=== PATIENT | female | born 1970 | race Caucasian/White ===

== ENCOUNTER 2019-12-19 06:00 | Outpatient (CLI) | payer MEDICAID, SELFPAY | END 2019-12-19 06:01 | disposition home or self-care (01) | PROVIDERS: PCP Nurse Practitioner Family; Visit Provider Nurse Practitioner Family | DX: C83.35 Diffuse large B-cell lymphoma, lymph nodes of inguinal region and lower limb (principal) | CPT/HCPCS: 80053; 80061; 83036; 83615; 84443; 85025; 85651; 86803 ==

== ENCOUNTER → 2019-12-29 10:53 | Outpatient (BNVA) | payer MEDICAID, SELFPAY | PROVIDERS: Family Provider Nurse Practitioner Family; PCP Nurse Practitioner Family; Visit Provider Internal Medicine Rheumatology | DX: Z11.59 Encounter for screening for other viral diseases (principal); Z79.899 Other long term (current) drug therapy; Z72.89 Other problems related to lifestyle | CPT/HCPCS: 36415; 87340 ==

== ENCOUNTER → 2020-02-14 13:09 | Outpatient (BNVA) | payer MEDICAID, SELFPAY | PROVIDERS: Family Provider Nurse Practitioner Family; PCP Nurse Practitioner Family; Visit Provider Internal Medicine | DX: M06.9 Rheumatoid arthritis, unspecified (principal); Z79.899 Other long term (current) drug therapy; L40.9 Psoriasis, unspecified; M35.3 Polymyalgia rheumatica; Z79.52 Long term (current) use of systemic steroids; F17.210 Nicotine dependence, cigarettes, uncomplicated | CPT/HCPCS: 36415; 80053; 85025; 85651; 86140; 99214 ==

== ENCOUNTER 2020-02-20 11:16 | Outpatient (CLI) | payer MEDICAID, SELFPAY ==
--- NOTE | 2020-02-20 11:25 | MM_ITS ---
WS: [id number] BILATERAL SCREENING DIGITAL MAMMOGRAM WITH CAD HISTORY: SCREENING COMPARISON: 01/21/2018, 12/07/2017 and 02/11/2018 Bilateral CC and MLO views submitted. Computer aided detection analyzed. Breast composition: There are scattered areas of fibroglandular density. No suspicious masses, microc alcifications or architectural distortion. Biopsy clip in the anterior RIGHT breast. No suspicious ma sses or calcifications. MM/[place] [id number] IMPRESSION: BI-RADS: 2-Benign FOLLOW UP: 1 Year Follow-up
== END 2020-02-20 11:17 | disposition home or self-care (01) ==
LOC: RADSHAW 11:22
PROVIDERS: PCP Nurse Practitioner Family; Visit Provider Nurse Practitioner Family
DX: Z12.31 Encounter for screening mammogram for malignant neoplasm of breast (principal)
CPT/HCPCS: 77067

== ENCOUNTER 2020-02-20 12:27 | Outpatient (CLI) | payer MEDICAID, SELFPAY ==
--- NOTE | 2020-02-20 12:35 | XR_ITS ---
WS: [id number] TECHNIQUE: 2 views of the right hand CLINICAL INFORMATION: increase COMPARISON: None. FINDINGS: Normal metacarpals. Normal MCP joint. Metacarpal heads are normal in appearance. Normal PIP and DIP j oints. No evidence of acute fracture or dislocation. Radiocarpal joint: Normal. Carpal bones: Normal. XR/XR hand RT 2V [id number] IMPRESSION: Normal right hand.
--- NOTE | 2020-02-20 12:35 | XR_ITS ---
WS: [id number] TECHNIQUE: 2 views of the left hand CLINICAL INFORMATION: increase pain COMPARISON: None. FINDINGS: Normal metacarpals. Normal MCP joint. Metacarpal heads are normal in appearance. Normal PIP and DIP j oints. No evidence of acute fracture or dislocation. Radiocarpal joint: Normal. Carpal bones: Normal. XR/XR hand LT 2V [id number] IMPRESSION: Normal left hand.
== END 2020-02-20 12:28 | disposition home or self-care (01) ==
PROVIDERS: Family Provider Nurse Practitioner Family; PCP Nurse Practitioner Family; Visit Provider Internal Medicine
DX: M79.642 Pain in left hand (principal); M79.641 Pain in right hand
CPT/HCPCS: 73120

== ENCOUNTER 2020-03-26 15:18 | Outpatient (CLI) | payer MEDICAID, SELFPAY ==
[2020-03-26 17:07] LABS: Basophils # 0.1 10^3/uL (0.0-0.1); Eosinophils # 0.2 10^3/uL (0.0-0.8); Eosinophils % 3.5 %; Hematocrit 43.2 % (37.0-47.0); Lymphocytes # 1.3 10^3/uL (0.8-4.8); Lymphocytes % 26.6 %; Mean Corpuscular HGB Conc 32.4 g/dL (30.0-36.0); Mean Corpuscular Hemoglobin 30.3 pg (28.0-34.0); Mean Corpuscular Volume 93.5 fL (81-99); Mean Platelet Volume 11.7 fL (7.4-10.4); Monocytes # 0.7 10^3/uL (0.2-0.9); Monocytes % 13.9 %; Neutrophils # 2.63 10^3/uL (1.8-7.7); Neutrophils % 54.8 %; Nucleated Red Blood Cells % 0 %; Platelet Count 335 10^3/cmm (130-400); Red Blood Count 4.62 10^6/uL (4.1-5.3); White Blood Count 4.8 10^3/uL (4.0-10.0)
[2020-03-26 17:26] LABS: Blood Urea Nitrogen 11 mg/dL (6-20); Calcium 9.1 mg/dL (8.5-10.5); Carbon Dioxide 26 mmol/L (22-29); Glomerular Filtration Rate 88.2 mL/min (90-130); Glucose 109 mg/dL (65-115)
[2020-03-26 19:00] LABS: Estmated Average Glucose 137; Hemoglobin A1C 6.4 % (4.0-6.0)
[2020-03-26 19:12] LABS: Anion Gap 17.9 (5-19); Chloride 103 mmol/L (98-107); Osmolality Calculated 288 mOsm/kg (285-295); Potassium 3.9 mmol/L (3.5-5.1); Sodium 141 mmol/L (136-145)
== END 2020-03-26 15:19 | disposition home or self-care (01) ==
LOC: LAB 15:20
PROVIDERS: PCP Nurse Practitioner Family; Visit Provider Nurse Practitioner Family
DX: Z79.899 Other long term (current) drug therapy (principal)
CPT/HCPCS: 80048; 83036; 85025

== ENCOUNTER → 2020-05-01 11:15 | Outpatient (BNVA) | payer MEDICAID, SELFPAY | PROVIDERS: PCP Nurse Practitioner Family; Visit Provider Internal Medicine | DX: M06.9 Rheumatoid arthritis, unspecified (principal); L40.9 Psoriasis, unspecified; C85.90 Non-Hodgkin lymphoma, unspecified, unspecified site; F17.210 Nicotine dependence, cigarettes, uncomplicated | CPT/HCPCS: 36415; 80053; 85025; 85651; 86140; 99213 ==

== ENCOUNTER → 2020-05-08 11:49 | Outpatient (BNVA) | payer MEDICAID, SELFPAY | PROVIDERS: PCP Nurse Practitioner Family; Visit Provider Nurse Practitioner Family | DX: Z11.59 Encounter for screening for other viral diseases (principal) | CPT/HCPCS: 87635 ==

== ENCOUNTER 2020-05-10 11:07 | Outpatient (CLI) | payer MEDICAID, SELFPAY ==
--- NOTE | 2020-05-10 11:35 | XR_ITS ---
WS: [id number] Chest 2 views, 05/10/2020 Clinical Data: CHRONIC COUGH Comparison: PA and lateral chest, 12/07/2017 Findings: No nodules, masses or effusions are seen. The heart is normal. The pulmonary vascularity is not increased. No pneumonia or pneumothorax is seen. There is an infusion catheter entering the left clavian vein and ending in the superior vena cava. The patient has had a lower cervical and upper th oracic fusion with bilateral pedicle screws and connecting rods. XR/XR chest 2V* [id number] Impression: Negative chest.
--- NOTE | 2020-05-10 11:38 | PFTS_ITS ---
Date of Study:05/10/20 Date of Dictation: 05/11/2020 MECHANICS: Forced vital capacity (FVC) is . Normal Forced expiratory volume in one second (FEV1) is moderate- severely reduced FEV1/FVC is reduced No postbronchodilator study to comment on bronchodilator response FLOW VOLUME LOOP: Scooping of expiratory limb suggestive of lower airway obstruction LUNG VOLUMES: Not measured DIFFUSING CAPACITY FOR CARBON MONOXIDE: Not measured . INTERPRETATION: Spirometry suggestive of moderately severe obstructive ventilatory defect. Correlate clinically MTDD
== END 2020-05-10 11:08 | disposition home or self-care (01) ==
LOC: RT 11:08
PROVIDERS: PCP Nurse Practitioner Family; Visit Provider Nurse Practitioner Family
DX: R05 Cough (principal)
CPT/HCPCS: 71046; 94010; 94060; J7611

== ENCOUNTER → 2020-08-01 11:06 | Outpatient (BNVA) | payer MEDICARE, MEDICAID, SELFPAY | PROVIDERS: PCP Nurse Practitioner Family; Visit Provider Internal Medicine | DX: M06.9 Rheumatoid arthritis, unspecified (principal); L40.9 Psoriasis, unspecified; F17.210 Nicotine dependence, cigarettes, uncomplicated | CPT/HCPCS: 99213 ==

== ENCOUNTER → 2020-12-20 12:57 | Outpatient (BNVA) | payer BC, MEDICAID, SELFPAY | PROVIDERS: PCP Nurse Practitioner Family; Visit Provider Internal Medicine | DX: M06.9 Rheumatoid arthritis, unspecified (principal); Z79.899 Other long term (current) drug therapy; Z79.52 Long term (current) use of systemic steroids; F17.210 Nicotine dependence, cigarettes, uncomplicated | CPT/HCPCS: 99213; 99214 ==

== ENCOUNTER 2021-03-06 13:48 | Outpatient (CLI) | payer MEDICARE, MEDICAID, SELFPAY ==
[2021-03-06 14:43] LABS: Basophils % 0.8 %; Eosinophils # 0.2 10^3/uL (0.0-0.8); Eosinophils % 3.2 %; Hematocrit 44.6 % (37.0-47.0); Lymphocytes # 1.8 10^3/uL (0.8-4.8); Lymphocytes % 34.2 %; Mean Corpuscular HGB Conc 33.6 g/dL (30.0-36.0); Mean Corpuscular Hemoglobin 31.8 pg (28.0-34.0); Mean Corpuscular Volume 94.5 fL (81-99); Mean Platelet Volume 11.3 fL (7.4-10.4); Monocytes # 0.6 10^3/uL (0.2-0.9); Monocytes % 10.5 %; Neutrophils # 2.68 10^3/uL (1.8-7.7); Neutrophils % 51.1 %; Nucleated Red Blood Cells % 0 %; Platelet Count 257 10^3/cmm (130-400); Red Blood Count 4.72 10^6/uL (4.1-5.3); Red Cell Distribution Width 13.2 % (12.1-15.1); White Blood Count 5.2 10^3/uL (4.0-10.0)
[2021-03-06 15:24] LABS: Erythrocyte Sedimentation Rate 16 mm/hr (0-15)
[2021-03-06 15:41] LABS: Alanine Aminotransferase 18 U/L (0-33); Alkaline Phosphatase 61 IU/L (35-105); Aspartate Amino Transferase 20 U/L (0-32); Blood Urea Nitrogen 9 mg/dL (6-20); C Reactive Protein 3.5 mg/L (0.0-4.9); Calcium 9.3 mg/dL (8.5-10.5); Carbon Dioxide 28 mmol/L (22-29); Chloride 104 mmol/L (98-107); Globulin 2.4 g/dL (1.3-4.6); Glomerular Filtration Rate 87.9 mL/min (90-130); Glucose 96 mg/dL (65-115); Osmolality Calculated 291 mOsm/kg (285-295); Sodium 141 mmol/L (136-145); Total Bilirubin 0.3 mg/dL (0.15-1.2); Total Protein 6.4 g/dL (6.6-8.7)
== END 2021-03-06 13:49 | disposition home or self-care (01) ==
PROVIDERS: PCP Nurse Practitioner Family; Visit Provider Internal Medicine
DX: Z79.899 Other long term (current) drug therapy (principal); C85.90 Non-Hodgkin lymphoma, unspecified, unspecified site; M06.9 Rheumatoid arthritis, unspecified; L40.9 Psoriasis, unspecified
CPT/HCPCS: 36415; 80053; 85025; 85651; 86140

== ENCOUNTER → 2021-03-07 13:08 | Outpatient (BNVA) | payer MEDICARE, MEDICAID, SELFPAY | PROVIDERS: PCP Nurse Practitioner Family; Visit Provider Internal Medicine | DX: M06.9 Rheumatoid arthritis, unspecified (principal); L40.9 Psoriasis, unspecified; C85.90 Non-Hodgkin lymphoma, unspecified, unspecified site; Z79.899 Other long term (current) drug therapy; F17.210 Nicotine dependence, cigarettes, uncomplicated | CPT/HCPCS: 99213; 99214 ==

== ENCOUNTER 2021-05-24 12:58 | Outpatient (CLI) | payer MEDICARE, MEDICAID, SELFPAY ==
--- NOTE | 2021-05-24 13:05 | CT_ITS ---
WS: [id number] CT CHEST WITH INTRAVENOUS CONTRAST HISTORY: LYMPHOMA, LYMPH NODES MULTIPLE SITES TECHNIQUE: Contiguous 5 mm axial imaging performed on the thorax. Coronal and sagittal reformats are submitted. All CT scans at [facility] use at least one of these dose optimization techniques: automated exposure control; mA and/or kV adjustment per patient size (includes targeted exams where dose is matched to clinical indication); or iterative reconstruction. CONTRAST: Omnipaque 300; 95 mL IV. DLP: 858.25 mGycm COMPARISON: 02/03/2018 Lungs and central airway: Moderate hyperinflation and emphysematous changes. There is a very small am ount of linear scarring and atelectasis at the RIGHT costophrenic angle. Pleura: Normal. No pleural effusion. Heart and pericardium: Normal size heart with no pericardial effusion. Mediastinum and roseanne: No mediastinum or hilar adenopathy. Vessels: Atherosclerosis aorta. No aneurysm. Normal size pulmonary artery. Chest wall and lower neck: No soft tissue masses. Upper abdomen: Hepatic steatosis along the falciform ligament. No bile duct dilatation or hepatic mas s. No adrenal mass. There is very mild thickening of the LEFT adrenal gland, similar to the prior nap[place] dy. No adenopathy in the upper abdomen. IVC filter is noted just to the RIGHT of L3. Postsurgical elvia nges are noted at the cervical thoracic region. No new destructive bone lesions. Osseous structures: No destructive process. CT/CT chest w con* [id number] IMPRESSION: 1. No pulmonary mass or pneumonia. 2. No adenopathy in the chest. 3. Chronic emphysema. 4. No adrenal mass.
[2021-05-24] MEDS: iohexol 300 mg/mL 100 mL Btl IV (13:27)
== END 2021-05-24 12:59 | disposition home or self-care (01) ==
PROVIDERS: PCP Nurse Practitioner Family; Visit Provider Nurse Practitioner Family
DX: C83.58 Lymphoblastic (diffuse) lymphoma, lymph nodes of multiple sites (principal); J43.9 Emphysema, unspecified
CPT/HCPCS: 71260; Q9967

== ENCOUNTER 2021-05-24 13:01 | Outpatient (CLI) | payer MEDICARE, MEDICAID, SELFPAY ==
--- NOTE | 2021-05-24 13:30 | XR_ITS ---
WS: [id number] LATERAL CERVICAL SPINE: 3 view. Lateral radiographs are performed in upright neutral, flexion and extension to the patient's toleranc e. HISTORY: Chronic neck pain. COMPARISON: 09/03/2016 Normal cervical alignment. Posterior fusion hardware extends from C7 to T3. Hardware appears intact. Normal flexion and extension the alignment of the cervical vertebral bodies remains normal. No instab ility. Mild extension instability of C5 is not identified today. XR/XR cervical spine fl/ex [id number] IMPRESSION: No cervical spine instability.
== END 2021-05-24 13:02 | disposition home or self-care (01) ==
PROVIDERS: PCP Nurse Practitioner Family; Visit Provider Internal Medicine
DX: Z79.899 Other long term (current) drug therapy (principal); M54.2 Cervicalgia
CPT/HCPCS: 72040

== ENCOUNTER 2021-06-19 12:04 | Outpatient (CLI) | payer MEDICARE, MEDICAID, SELFPAY ==
--- NOTE | 2021-06-19 12:13 | MM_ITS ---
WS: [id number] BILATERAL DIGITAL SCREENING MAMMOGRAPHY WITH CAD CLINICAL INFORMATION: SCREENING HISTORY: Screening mammogram. No current complaints. COMPARISON: February 20, 2020 TECHNIQUE: Bilateral CC and MLO views. FINDINGS: Scattered fibroglandular densities bilaterally. Vascular calcification. Stable biopsy marker right olson bareolar breast with stable 6 mm ovoid nodule. No suspicious focal mass, asymmetry, calcifications, o r architectural distortion. No evidence of malignancy. MM/[place] [id number] IMPRESSION: BI-RADS: 2-Benign FOLLOW UP: 1 Year Follow-up Recommend return to annual screening mammography.
== END 2021-06-19 12:05 | disposition home or self-care (01) ==
LOC: RADSHAW 12:10
PROVIDERS: PCP Nurse Practitioner Family; Visit Provider Nurse Practitioner Family
DX: Z12.31 Encounter for screening mammogram for malignant neoplasm of breast (principal)
CPT/HCPCS: 77067

== ENCOUNTER → 2021-06-25 09:42 | Outpatient (BNVA) | payer MEDICARE, MEDICAID, SELFPAY | PROVIDERS: PCP Nurse Practitioner Family; Visit Provider Internal Medicine | DX: M06.9 Rheumatoid arthritis, unspecified (principal); L40.9 Psoriasis, unspecified; Z79.899 Other long term (current) drug therapy; F17.210 Nicotine dependence, cigarettes, uncomplicated | CPT/HCPCS: 99214 ==

== ENCOUNTER 2021-09-04 14:36 | Outpatient (CLI) | payer MEDICARE, MEDICAID, SELFPAY ==
--- NOTE | 2021-09-04 14:47 | XR_ITS ---
WS: [id number] Right shoulder, 2 views, 09/04/2021 Clinical Data: M06.9 - Rheumatoid arthritis, unspecified Comparison: None. Findings: No fractures or dislocations are seen. The AC joint is normal. The adjacent right clavicle, right sca pula and ribs are normal. The soft tissues are unremarkable. There is a posterior fusion of the right side of the T2 and T3 vertebral bodies. XR/XR shoulder RT min 2V* [id number] Impression: Negative right shoulder.
--- NOTE | 2021-09-04 14:47 | XR_ITS ---
WS: [id number] Left shoulder, 3 views, 09/04/2021 Clinical Data: M06.9 - Rheumatoid arthritis, unspecified Comparison: None. Findings: No fractures or dislocations are seen. The AC joint is normal. There is calcification in the region o f the cortical clavicular ligament which may be from old trauma. The adjacent left clavicle, left sca pula and ribs are normal. The soft tissues are unremarkable. There is a left posterior fusion of the T1-T3 vertebral bodies. XR/XR shoulder LT min 2V* [id number] Impression: Negative left shoulder.
[2021-09-04 15:57] LABS: Basophils # 0.1 10^3/uL (0.0-0.1); Basophils % 1.1 %; Eosinophils # 0.2 10^3/uL (0.0-0.8); Eosinophils % 4.3 %; Hematocrit 43.5 % (37.0-47.0); Hemoglobin 14.6 g/dL (11.5-15.3); Lymphocytes # 1.7 10^3/uL (0.8-4.8); Lymphocytes % 36.7 %; Mean Corpuscular HGB Conc 33.6 g/dL (30.0-36.0); Mean Corpuscular Hemoglobin 31.2 pg (28.0-34.0); Mean Corpuscular Volume 92.9 fl (81-99); Mean Platelet Volume 10.7 fL (7.4-10.4); Monocytes # 0.4 10^3/uL (0.2-0.9); Monocytes % 9.1 %; Neutrophils # 2.24 10^3/uL (1.8-7.7); Neutrophils % 48.6 %; Nucleated Red Blood Cells % 0 %; Platelet Count 306 10^3/cmm (130-400); Red Blood Count 4.68 10^6/uL (4.1-5.3); Red Cell Distribution Width 13.2 % (12.1-15.1); White Blood Count 4.6 10^3/uL (4.0-10.0)
[2021-09-04 16:25] LABS: Alanine Aminotransferase 19 U/L (0-33); Albumin Level 4.1 g/dL (3.5-5.2); Alkaline Phosphatase 42 IU/L (35-105); Anion Gap 14.9 (5-19); Aspartate Amino Transferase 20 U/L (0-32); Blood Urea Nitrogen 9 mg/dL (6-20); C Reactive Protein 2.8 mg/L (0.0-4.9); Calcium 9.1 mg/dL (8.5-10.5); Carbon Dioxide 23 mmol/L (22-29); Chloride 105 mmol/L (98-107); Globulin 2.2 g/dL (1.3-4.6); Glomerular Filtration Rate 87.9 mL/min (90-130); Glucose 79 mg/dL (65-115); Osmolality Calculated 286 mOsm/kg (285-295); Potassium 3.9 mmol/L (3.5-5.1); Sodium 139 mmol/L (136-145); Total Bilirubin 0.2 mg/dL (0.15-1.2); Total Protein 6.3 g/dL (6.6-8.7)
[2021-09-04 17:01] LABS: Erythrocyte Sedimentation Rate 16 mm/hr (0-15)
== END 2021-09-04 14:37 | disposition home or self-care (01) ==
PROVIDERS: PCP Nurse Practitioner Family; Visit Provider Internal Medicine
DX: M06.9 Rheumatoid arthritis, unspecified (principal); L40.9 Psoriasis, unspecified; Z79.899 Other long term (current) drug therapy
CPT/HCPCS: 73030; 80053; 85025; 85651; 86140

== ENCOUNTER → 2021-09-18 12:26 | Outpatient (BNVA) | payer MEDICARE, MEDICAID, SELFPAY | PROVIDERS: PCP Nurse Practitioner Family; Visit Provider Internal Medicine | DX: M06.9 Rheumatoid arthritis, unspecified (principal); Z79.899 Other long term (current) drug therapy; Z99.3 Dependence on wheelchair | CPT/HCPCS: 99214 ==

== ENCOUNTER 2021-12-20 12:23 | Outpatient (CLI) | payer MEDICARE, MEDICAID, SELFPAY ==
[2021-12-20 14:03] LABS: Basophils # 0.1 10^3/uL (0.0-0.1); Basophils % 0.8 %; Eosinophils # 0.2 10^3/uL (0.0-0.8); Hematocrit 43.7 % (37.0-47.0); Hemoglobin 14.9 g/dL (11.5-15.3); Lymphocytes # 1.5 10^3/uL (0.8-4.8); Lymphocytes % 25.4 %; Mean Corpuscular HGB Conc 34.1 g/dL (30.0-36.0); Mean Corpuscular Hemoglobin 31.8 pg (28.0-34.0); Mean Corpuscular Volume 93.2 fl (81-99); Mean Platelet Volume 11.4 fL (7.4-10.4); Monocytes # 0.7 10^3/uL (0.2-0.9); Monocytes % 11.7 %; Neutrophils # 3.53 10^3/uL (1.8-7.7); Neutrophils % 58.9 %; Nucleated Red Blood Cells % 0 %; Platelet Count 276 10^3/cmm (130-400); Red Blood Count 4.69 10^6/uL (4.1-5.3); Red Cell Distribution Width 14.2 % (12.1-15.1)
[2021-12-20 14:21] LABS: Alanine Aminotransferase 22 U/L (0-33); Albumin Level 4.4 g/dL (3.5-5.2); Alkaline Phosphatase 39 IU/L (35-105); Anion Gap 14.8 (5-19); Aspartate Amino Transferase 21 U/L (0-32); Blood Urea Nitrogen 9 mg/dL (6-20); Calcium 8.7 mg/dL (8.5-10.5); Carbon Dioxide 26 mmol/L (22-29); Chloride 103 mmol/L (98-107); Globulin 1.9 g/dL (1.3-4.6); Glomerular Filtration Rate 87.9 mL/min (90-130); Glucose 90 mg/dL (65-115); Osmolality Calculated 288 mOsm/kg (285-295); Potassium 3.8 mmol/L (3.5-5.1); Sodium 140 mmol/L (136-145); Total Bilirubin 0.2 mg/dL (0.15-1.2); Total Protein 6.3 g/dL (6.6-8.7)
[2021-12-20 14:29] LABS: Erythrocyte Sedimentation Rate 8 mm/hr (0-15)
== END 2021-12-20 12:24 | disposition home or self-care (01) ==
LOC: LAB 12:26
PROVIDERS: PCP Nurse Practitioner Family; Visit Provider Internal Medicine
DX: Z79.899 Other long term (current) drug therapy (principal); M06.9 Rheumatoid arthritis, unspecified; L40.9 Psoriasis, unspecified; C85.90 Non-Hodgkin lymphoma, unspecified, unspecified site
CPT/HCPCS: 36415; 80053; 85025; 85651; 86140

== ENCOUNTER → 2021-12-23 13:40 | Outpatient (BNVA) | payer MEDICARE, MEDICAID, SELFPAY | PROVIDERS: PCP Nurse Practitioner Family; Visit Provider Internal Medicine | DX: M06.9 Rheumatoid arthritis, unspecified (principal); Z79.899 Other long term (current) drug therapy; F17.210 Nicotine dependence, cigarettes, uncomplicated | CPT/HCPCS: 99213 ==

== ENCOUNTER 2022-09-16 10:57 | Outpatient (CLI) | payer MEDICARE, MEDICAID, SELFPAY ==
[2022-09-16 11:22] LABS: Basophils # 0.1 10^3/uL (0.0-0.1); Basophils % 0.9 %; Eosinophils # 0.2 10^3/uL (0.0-0.8); Eosinophils % 4.4 %; Erythrocyte Sedimentation Rate 7 mm/hr (0-15); Hematocrit 47.2 % (37.0-47.0); Hemoglobin 15.6 g/dL (11.5-15.3); Lymphocytes # 1.5 10^3/uL (0.8-4.8); Mean Corpuscular HGB Conc 33.1 g/dL (30.0-36.0); Mean Corpuscular Hemoglobin 31.5 pg (28.0-34.0); Mean Corpuscular Volume 95.2 fl (81-99); Mean Platelet Volume 9.9 fL (7.4-10.4); Monocytes # 0.5 10^3/uL (0.2-0.9); Monocytes % 9.8 %; Neutrophils # 3.17 10^3/uL (1.8-7.7); Neutrophils % 57.7 %; Nucleated Red Blood Cells % 0 %; Platelet Count 367 10^3/cmm (130-400); Red Blood Count 4.96 10^6/uL (4.1-5.3); Red Cell Distribution Width 13.7 % (12.1-15.1); White Blood Count 5.5 10^3/uL (4.0-10.0)
[2022-09-16 11:39] LABS: Alanine Aminotransferase 30 U/L (0-33); Albumin Level 4.5 g/dL (3.5-5.2); Alkaline Phosphatase 61 U/L (35-105); Anion Gap 16.2 (5-19); Aspartate Amino Transferase 28 U/L (0-32); Blood Urea Nitrogen 10 mg/dL (6-20); C Reactive Protein 6.5 mg/L (0.0-4.9); Calcium 9.3 mg/dL (8.5-10.5); Carbon Dioxide 26 mmol/L (22-29); Chloride 103 mmol/L (98-107); Glomerular Filtration Rate 87.5 mL/min (90-130); Glucose 105 mg/dL (65-115); Osmolality Calculated 291 mOsm/kg (285-295); Potassium 4.2 mmol/L (3.5-5.1); Sodium 141 mmol/L (136-145); Total Bilirubin 0.2 mg/dL (0.15-1.2); Total Protein 7.5 g/dL (6.6-8.7)
== END 2022-09-16 10:58 | disposition home or self-care (01) ==
LOC: LAB 11:03
PROVIDERS: PCP Nurse Practitioner Family; Visit Provider Internal Medicine
DX: M06.9 Rheumatoid arthritis, unspecified (principal); Z79.899 Other long term (current) drug therapy
CPT/HCPCS: 36415; 80053; 85025; 85651; 86140

== ENCOUNTER → 2022-09-22 14:41 | Outpatient (BNVA) | payer MEDICARE, MEDICAID, SELFPAY | PROVIDERS: PCP Nurse Practitioner Family; Visit Provider Internal Medicine | DX: M06.9 Rheumatoid arthritis, unspecified (principal); Z79.899 Other long term (current) drug therapy | CPT/HCPCS: 99214 ==

== ENCOUNTER → 2022-12-29 14:21 | Outpatient (BNVA) | payer MEDICARE, MEDICAID, SELFPAY | PROVIDERS: PCP Nurse Practitioner Family; Visit Provider Internal Medicine | DX: M06.9 Rheumatoid arthritis, unspecified (principal); L40.9 Psoriasis, unspecified; Z79.899 Other long term (current) drug therapy; M65.30 Trigger finger, unspecified finger | CPT/HCPCS: 99214 ==

== ENCOUNTER 2023-03-26 09:42 | Outpatient (CLI) | payer MEDICARE, MEDICAID, SELFPAY ==
[2023-03-26 10:46] LABS: Basophils % 0.7 %; Eosinophils # 0.2 10^3/uL (0.0-0.8); Eosinophils % 2.6 %; Hematocrit 42.9 % (37.0-47.0); Hemoglobin 14.4 g/dL (11.5-15.3); Lymphocytes # 2.2 10^3/uL (0.8-4.8); Lymphocytes % 37.4 %; Mean Corpuscular HGB Conc 33.6 g/dL (30.0-36.0); Mean Corpuscular Hemoglobin 32.1 pg (28.0-34.0); Mean Corpuscular Volume 95.5 fl (81-99); Mean Platelet Volume 10.5 fL (7.4-10.4); Monocytes # 0.4 10^3/uL (0.2-0.9); Monocytes % 7.1 %; Neutrophils # 2.99 10^3/uL (1.8-7.7); Nucleated Red Blood Cells % 0 %; Platelet Count 320 10^3/cmm (130-400); Red Blood Count 4.49 10^6/uL (4.1-5.3); Red Cell Distribution Width 14.3 % (12.1-15.1); White Blood Count 5.8 10^3/uL (4.0-10.0)
[2023-03-26 11:03] LABS: Erythrocyte Sedimentation Rate 2 mm/hr (0-15)
[2023-03-26 11:10] LABS: Alanine Aminotransferase 20 U/L (0-33); Albumin Level 4.2 g/dL (3.5-5.2); Alkaline Phosphatase 36 U/L (35-105); Aspartate Amino Transferase 20 U/L (0-32); Blood Urea Nitrogen 12 mg/dL (6-20); Calcium 9.7 mg/dL (8.5-10.5); Carbon Dioxide 27 mmol/L (22-29); Chloride 101 mmol/L (98-107); Globulin 2.3 g/dL (1.3-4.6); Glomerular Filtration Rate 87.2 mL/min (90-130); Glucose 97 mg/dL (65-115); Osmolality Calculated 286 mOsm/kg (285-295); Sodium 138 mmol/L (136-145); Total Bilirubin 0.3 mg/dL (0.15-1.2); Total Protein 6.5 g/dL (6.6-8.7)
== END 2023-03-26 09:43 | disposition home or self-care (01) ==
LOC: LAB 09:52
PROVIDERS: PCP Nurse Practitioner Family; Visit Provider Internal Medicine
DX: M06.9 Rheumatoid arthritis, unspecified (principal); Z79.899 Other long term (current) drug therapy; M19.90 Unspecified osteoarthritis, unspecified site
CPT/HCPCS: 36415; 80053; 85025; 85651; 86140

== ENCOUNTER → 2023-04-07 14:17 | Outpatient (BNVA) | payer MEDICARE, MEDICAID, SELFPAY | PROVIDERS: PCP Nurse Practitioner Family; Visit Provider Internal Medicine | DX: M06.9 Rheumatoid arthritis, unspecified (principal); M65.331 Trigger finger, right middle finger; Z79.899 Other long term (current) drug therapy | CPT/HCPCS: 20600; 99213; J1030 ==

== ENCOUNTER 2023-09-09 14:50 | Outpatient (CLI) | payer MEDICARE, MEDICAID, SELFPAY ==
[2023-09-11 12:19] LABS: Quantiferon Mitogen >10.00 IU/mL; Quantiferon Nil 0.07 IU/mL; Quantiferon Plus TB1 0.01 IU/mL; Quantiferon Plus TB2 0.01 IU/mL; Quantiferon TB Gold NEGATIVE (NEGATIVE)
== END 2023-09-09 14:51 | disposition home or self-care (01) ==
LOC: LAB 14:51
PROVIDERS: PCP Nurse Practitioner Family; Visit Provider Internal Medicine
DX: M06.9 Rheumatoid arthritis, unspecified (principal); L40.9 Psoriasis, unspecified
CPT/HCPCS: 36415; 86480

== ENCOUNTER → 2023-09-18 11:23 | Outpatient (BNVA) | payer MEDICARE, MEDICAID, SELFPAY | PROVIDERS: PCP Nurse Practitioner Family; Visit Provider Internal Medicine | DX: M06.9 Rheumatoid arthritis, unspecified (principal); Z79.899 Other long term (current) drug therapy | CPT/HCPCS: 36415; 80053; 85025; 85651; 99214 ==

== ENCOUNTER 2024-01-12 12:13 | Outpatient (CLI) | payer MEDICARE, MEDICAID, SELFPAY ==
[2024-01-12 12:44] LABS: Basophils # 0.1 10^3/uL (0.0-0.1); Eosinophils # 0.2 10^3/uL (0.0-0.8); Eosinophils % 2.2 %; Hematocrit 43.5 % (36-47); Lymphocytes # 2.5 10^3/uL (0.8-4.8); Mean Corpuscular HGB Conc 34.3 g/dL (30-55); Mean Corpuscular Hemoglobin 33.6 pg (27-33); Mean Corpuscular Volume 98.2 fl (85-98); Monocytes # 0.5 10^3/uL (0.2-0.9); Monocytes % 7.4 %; Neutrophils # 3.88 10^3/uL (1.8-7.7); Neutrophils % 54.1 %; Nucleated Red Blood Cells % 0 %; Platelet Count 313 10^3/cmm (157-399); Red Blood Count 4.43 10^6/uL (3.85-5.65); Red Cell Distribution Width 14.4 % (12.1-15.1); White Blood Count 7.17 10^3/uL (3.29-11.43)
[2024-01-12 13:00] LABS: Alanine Aminotransferase 24 U/L (0-33); Albumin Level 4.4 g/dL (3.5-5.2); Alkaline Phosphatase 48 U/L (35-105); Aspartate Amino Transferase 22 U/L (0-32); Globulin 2.7 g/dL (1.3-4.6); Glomerular Filtration Rate 74.7 mL/min (90-130); Total Bilirubin 0.2 mg/dL (0.15-1.2); Total Protein 7.1 g/dL (6.6-8.7)
== END 2024-01-12 12:14 | disposition home or self-care (01) ==
PROVIDERS: PCP Nurse Practitioner Family; Visit Provider Internal Medicine Rheumatology
DX: Z79.899 Other long term (current) drug therapy (principal); M06.9 Rheumatoid arthritis, unspecified
CPT/HCPCS: 36415; 80076; 82565; 85025; 86140

== ENCOUNTER → 2024-04-25 10:00 | Outpatient (BNVA) | payer MEDICARE, MEDICAID, SELFPAY | PROVIDERS: PCP Nurse Practitioner Family; Visit Provider Internal Medicine Rheumatology | DX: M05.79 Rheumatoid arthritis with rheumatoid factor of multiple sites without organ or systems involvement (principal); Z79.899 Other long term (current) drug therapy; Z71.85 Encounter for immunization safety counseling; C85.90 Non-Hodgkin lymphoma, unspecified, unspecified site | CPT/HCPCS: 36415; 80076; 82565; 85025; 85651; 86140; 99214 ==

== ENCOUNTER 2024-07-25 14:51 | Outpatient (CLI) | payer MEDICARE, MEDICAID, SELFPAY ==
[2024-07-25 15:10] LABS: Basophils % 0.6 %; Eosinophils # 0.1 10^3/uL (0.0-0.8); Eosinophils % 1.2 %; Hematocrit 40.2 % (36-47); Lymphocytes # 2.2 10^3/uL (0.8-4.8); Lymphocytes % 32.9 %; Mean Corpuscular HGB Conc 33.8 g/dL (30-55); Mean Corpuscular Hemoglobin 32.2 pg (27-33); Mean Corpuscular Volume 95.3 fl (85-98); Mean Platelet Volume 9.6 fL (7.4-10.4); Monocytes # 0.6 10^3/uL (0.2-0.9); Monocytes % 8.8 %; Neutrophils # 3.67 10^3/uL (1.8-7.7); Nucleated Red Blood Cells % 0 %; Platelet Count 391 10^3/cmm (157-399); Red Blood Count 4.22 10^6/uL (3.85-5.65); Red Cell Distribution Width 14.3 % (12.1-15.1); White Blood Count 6.56 10^3/uL (3.29-11.43)
[2024-07-25 15:34] LABS: Alanine Aminotransferase 27 U/L (0-33); Albumin Level 4.3 g/dL (3.5-5.2); Alkaline Phosphatase 37 U/L (35-105); Aspartate Amino Transferase 22 U/L (0-32); Globulin 2.4 g/dL (1.3-4.6); Glomerular Filtration Rate 86.9 mL/min (90-130); Total Bilirubin 0.2 mg/dL (0.15-1.2); Total Protein 6.7 g/dL (6.6-8.7)
[2024-07-25 15:47] LABS: Erythrocyte Sedimentation Rate 2 mm/hr (0-15)
== END 2024-07-25 14:52 | disposition home or self-care (01) ==
LOC: LAB 14:53
PROVIDERS: PCP Nurse Practitioner Family; Visit Provider Internal Medicine Rheumatology
DX: Z79.899 Other long term (current) drug therapy (principal); M06.9 Rheumatoid arthritis, unspecified
CPT/HCPCS: 36415; 80076; 82565; 85025; 85651; 86140

== ENCOUNTER 2024-10-26 13:52 | Outpatient (CLI) | payer MEDICARE, SELFPAY ==
--- NOTE | 2024-10-26 13:59 | XR_ITS ---
WS: [id number] Chest 2 views, 10/26/2024 Clinical Data: COUGH Comparison: None. Findings: No nodules, masses or effusions are seen. The heart is normal. The pulmonary vascularity is not increased. No pneumonia or pneumothorax is seen. The diaphragms are flattened. The aortic arch shows mild calcification. There is a posterior cervical thoracic fusion. XR/XR chest 2V* [id number] Impression: Atherosclerosis and hyperinflation.
[2024-10-26 14:52] LABS: Basophils % 0.4 %; Eosinophils # 0.1 10^3/uL (0.0-0.8); Eosinophils % 0.9 %; Hematocrit 43.6 % (36-47); Lymphocytes # 1.7 10^3/uL (0.8-4.8); Lymphocytes % 22.1 %; Mean Corpuscular HGB Conc 32.6 g/dL (30-55); Mean Corpuscular Hemoglobin 32.2 pg (27-33); Mean Corpuscular Volume 98.9 fl (85-98); Mean Platelet Volume 9.8 fL (7.4-10.4); Monocytes # 0.6 10^3/uL (0.2-0.9); Neutrophils # 5.25 10^3/uL (1.8-7.7); Neutrophils % 67.7 %; Nucleated Red Blood Cells % 0 %; Platelet Count 489 10^3/cmm (157-399); Red Blood Count 4.41 10^6/uL (3.85-5.65); Red Cell Distribution Width 14.7 % (12.1-15.1); White Blood Count 7.75 10^3/uL (3.29-11.43)
[2024-10-26 14:53] LABS: Erythrocyte Sedimentation Rate 8 mm/hr (0-15)
[2024-10-26 15:15] LABS: Alanine Aminotransferase 25 U/L (0-33); Albumin Level 4.1 g/dL (3.5-5.2); Alkaline Phosphatase 46 U/L (35-105); Aspartate Amino Transferase 17 U/L (0-32); C Reactive Protein 6.6 mg/L (0.0-4.9); Globulin 2.5 g/dL (1.3-4.6); Glomerular Filtration Rate 74.5 mL/min (90-130); Total Bilirubin 0.4 mg/dL (0.15-1.2); Total Protein 6.6 g/dL (6.6-8.7)
[2024-10-26 15:27] LABS: Hepatitis C Virus Antibody Non-Reactive (Nonreactive)
[2024-10-26 15:35] LABS: Hepatitis B Core AB, Total Non-Reactive (Nonreactive); Hepatitis B Surface Antigen Non-Reactive (Nonreactive)
== END 2024-10-26 13:53 | disposition home or self-care (01) ==
LOC: LAB 13:55
PROVIDERS: PCP Nurse Practitioner Adult Health; Visit Provider Internal Medicine Rheumatology
DX: J20.9 Acute bronchitis, unspecified (principal); M05.79 Rheumatoid arthritis with rheumatoid factor of multiple sites without organ or systems involvement; C85.90 Non-Hodgkin lymphoma, unspecified, unspecified site; Z79.899 Other long term (current) drug therapy; R05.9 Cough, unspecified; I70.0 Atherosclerosis of aorta; R93.89 Abnormal findings on diagnostic imaging of other specified body structures; Z98.1 Arthrodesis status
CPT/HCPCS: 36415; 71046; 80076; 82565; 85025; 85651; 86140; 86480; 86704; 86803; 87340

== ENCOUNTER → 2025-01-11 14:39 | Outpatient (BNVA) | payer MEDICARE, MEDICAID, SELFPAY | PROVIDERS: PCP Nurse Practitioner Adult Health; Visit Provider Internal Medicine Rheumatology | DX: Z79.899 Other long term (current) drug therapy (principal); M05.79 Rheumatoid arthritis with rheumatoid factor of multiple sites without organ or systems involvement; Z71.85 Encounter for immunization safety counseling; C85.90 Non-Hodgkin lymphoma, unspecified, unspecified site | CPT/HCPCS: 36415; 80076; 82565; 85025; 85651; 86140; 99214 ==

== ENCOUNTER 2025-03-07 15:30 | Outpatient (CLI) | payer MEDICARE, MEDICAID, SELFPAY ==
[2025-03-07 17:01] LABS: Hematocrit 36.4 % (36-47); Hemoglobin 12.80 g/dL (11.27-16.99); Mean Corpuscular HGB Conc 35.2 g/dL (30-55); Mean Corpuscular Hemoglobin 35.4 pg (27-33); Mean Corpuscular Volume 100.6 fl (85-98); Nucleated Red Blood Cells % 0 %; Platelet Count 459 10^3/cmm (157-399); Red Blood Count 3.62 10^6/uL (3.85-5.65); White Blood Count 11.44 10^3/uL (3.29-11.43)
[2025-03-07 17:27] LABS: Alanine Aminotransferase 21 U/L (0-33); Albumin Level 4.0 g/dL (3.5-5.2); Alkaline Phosphatase 52 U/L (35-105); Aspartate Amino Transferase 17 U/L (0-32); Globulin 2.8 g/dL (1.3-4.6); Total Protein 6.8 g/dL (6.6-8.7)
== END 2025-03-07 15:31 | disposition home or self-care (01) ==
LOC: LAB 15:36
PROVIDERS: PCP Nurse Practitioner Adult Health; Visit Provider Internal Medicine Rheumatology
DX: Z79.899 Other long term (current) drug therapy (principal)
CPT/HCPCS: 36415; 80076; 82565; 85025; 85651; 86140

== ENCOUNTER → 2025-05-30 11:09 | Outpatient (BNVA) | payer MEDICARE, MEDICAID, SELFPAY | PROVIDERS: PCP Nurse Practitioner Adult Health; Visit Provider Internal Medicine Rheumatology | DX: Z79.899 Other long term (current) drug therapy (principal); M05.79 Rheumatoid arthritis with rheumatoid factor of multiple sites without organ or systems involvement; Z71.85 Encounter for immunization safety counseling; C85.90 Non-Hodgkin lymphoma, unspecified, unspecified site | CPT/HCPCS: 99214 ==